=== PATIENT | female | born 1980 | race Caucasian/White ===

== ENCOUNTER 2019-05-11 19:45 | Emergency (ER) | payer OTHER ==
[~2019-05-11] VITALS: Ht 170.2 cm; Wt 72.6 kg
[~2019-05-11 19:45] MED LIST: ALBU18
[2019-05-11] MEDS ORDERED: BUPIVACAINE 0.5% P/F INJ 10 ML VIAL ONE (20:14)
[2019-05-12] MEDS ORDERED: LIDOCAINE 1% HCL (LOCAL ANESTH.) INJ 20ML MDV ID ONE (02:15)
[2019-05-12 04:11] VITALS: BP 124/76
[2019-05-12] MEDS ORDERED: cefTRIAXone W LIDOCAINE 1 GM IM IM ONE (04:15)
[2019-05-12] MEDS ORDERED: BACITRACIN INJ 50000 UNIT VIAL TOP ONE (04:15)
[2019-05-12] MEDS ORDERED: TETANUS-DIPTH-ACEL PERTUSSIS 0.5ML SYRG IM ONE (04:15)
[2019-05-12] MEDS ORDERED: cefTRIAXone SOD 1,000 MG VL ONE (05:03)
[2019-05-12] MEDS ORDERED: BACITRACIN TOP OINT 1 UD PKG TOP ONE (05:15)
== END 2019-05-12 05:29 | disposition home or self-care (01) ==
LOC: ER 19:48
DX: S61.213A Laceration without foreign body of left middle finger without damage to nail, initial encounter (principal); F17.210 Nicotine dependence, cigarettes, uncomplicated; J45.909 Unspecified asthma, uncomplicated; Z90.710 Acquired absence of both cervix and uterus; W26.8XXA Contact with other sharp object(s), not elsewhere classified, initial encounter; Y93.89 Activity, other specified; Y99.8 Other external cause status; Y92.89 Other specified places as the place of occurrence of the external cause
CPT/HCPCS: 12002; 73120; 90471; 90715; 96372; 99283; J0696; J2001; J3490

== ENCOUNTER 2020-02-22 11:02 | Emergency (ER) | payer OTHER ==
[~2020-02-22] VITALS: Ht 170.2 cm; Wt 72.6 kg
[2020-02-22 11:15] VITALS: BP 152/107
[2020-02-22] MEDS ORDERED: LACTULOSE 20Gm/30ML SOLN PO ONE (12:00)
== END 2020-02-22 12:09 | disposition home or self-care (01) ==
LOC: ER 11:02
DX: T24.212A Burn of second degree of left thigh, initial encounter (principal); K59.00 Constipation, unspecified; F17.210 Nicotine dependence, cigarettes, uncomplicated; J45.909 Unspecified asthma, uncomplicated; X08.8XXA Exposure to other specified smoke, fire and flames, initial encounter; Y93.89 Activity, other specified; Y92.89 Other specified places as the place of occurrence of the external cause; Y99.8 Other external cause status
CPT/HCPCS: 81002

== ENCOUNTER 2020-03-07 15:27 | Emergency (ER) | payer OTHER ==
[~2020-03-07] VITALS: Ht 170.2 cm; Wt 45.4 kg
[2020-03-07 15:38] VITALS: BP 133/82
== END 2020-03-07 17:03 | disposition home or self-care (01) ==
LOC: ER 15:27
DX: S63.642A Sprain of metacarpophalangeal joint of left thumb, initial encounter (principal); F17.210 Nicotine dependence, cigarettes, uncomplicated; X50.9XXA Other and unspecified overexertion or strenuous movements or postures, initial encounter; Y93.89 Activity, other specified; Y92.89 Other specified places as the place of occurrence of the external cause; Y99.8 Other external cause status
CPT/HCPCS: 29125; 73130

== ENCOUNTER 2021-08-06 00:56 | Emergency (ER) | payer OTHER ==
[~2021-08-06] VITALS: Ht 170.2 cm; Wt 72.6 kg
[2021-08-06 02:41] LABS: Basophils # (auto) 0.1 10 ^3/uL (0-0.2); Basophils % (auto) 3.3 % (0.0-2.0); Eosinophils # (auto) 0.1 10 ^3/uL (0-0.8); Eosinophils % (auto) 3.8 % (0.0-7.0); Hematocrit 42.5 % (36.0-46.0); Hemoglobin 14.3 g/dL (12.2-16.2); Lymphocytes # (auto) 1.4 10 ^3/uL (0.4-5.4); Lymphocytes % (auto) 43.8 % (10.0-50.0); Mean Corpuscular Hemoglobin 29.8 pg (28.0-32.0); Mean Corpuscular Hgb Conc. 33.6 g/dL (32.0-36.0); Mean Corpuscular Volume 88.7 fL (80.0-100.0); Monocytes # (auto) 0.4 10 ^3/uL (0-1.3); Monocytes % (auto) 12.1 % (0.0-12.0); Neutrophils # (auto) 1.2 10 ^3/uL (1.6-8.6); Nucleated Red Blood Cells % 0.2 %; Red Blood Cells 4.79 10^6/uL (4.0-5.20); Red Cell Distribution Width 13.7 % (11.8-14.3); White Blood Cell 3.2 10^3/uL (4.4-10.8)
[2021-08-06 02:58] LABS: Albumin 3.6 g/dL (3.4-5.0); Calcium 8.8 mg/dL (8.5-10.1); Potassium 4.3 mmol/L (3.5-5.1)
[2021-08-06 03:01] LABS: BUN/Creatinine Ratio 21.2
[2021-08-06 03:04] LABS: Bilirubin, Total 0.3 mg/dL (0.2-1.0); Total Protein 6.6 g/dL (6.4-8.2)
[2021-08-06 04:48] LABS: Urine Bacteria FEW /hpf (None Seen); Urine Blood TRACE /uL (Negative); Urine Mucus FEW (None Seen); Urine Specific Gravity 1.028 (1.001-1.035); Urine WBC 1 /hpf (0 - 5)
[2021-08-06] MEDS ORDERED: IBU600T PO (11:31)
[2021-08-06] MEDS ORDERED: NITR-87 PO (11:31)
[2021-08-06 11:40] VITALS: BP 129/92
[2021-08-06] MEDS ORDERED: ALBUAER3 IN (11:44)
== END 2021-08-06 11:50 | disposition home or self-care (01) ==
LOC: ER 01:00
DX: N20.0 Calculus of kidney (principal); N83.202 Unspecified ovarian cyst, left side; J45.909 Unspecified asthma, uncomplicated; F17.210 Nicotine dependence, cigarettes, uncomplicated; Z90.49 Acquired absence of other specified parts of digestive tract; Z79.899 Other long term (current) drug therapy
CPT/HCPCS: 36415; 74176; 76830; 76856; 80053; 81001; 83690; 85025

== ENCOUNTER 2023-02-21 19:08 | Emergency (ER) | payer OTHER ==
[~2023-02-21] VITALS: Ht 170.2 cm; Wt 75.0 kg
[~2023-02-21 19:08] MED LIST changes: +ALBUAER3 IN; +IBU600T PO; +NITR-87 PO
[2023-02-21] MEDS ORDERED: ONDANSETRON ODT 4 MG TAB PO ONE (19:30)
[2023-02-21] MEDS ORDERED: HYDROcodone-ACET 10/325MG TAB PO ONE (19:30)
[2023-02-21] MEDS ORDERED: LIDOCAINE 1% HCL (LOCAL ANESTH.) INJ 20ML MDV ONE (21:11)
[2023-02-21] MEDS ORDERED: LIDOCAINE 1% HCL (LOCAL ANESTH.) INJ 20ML MDV ID ONE (21:15)
[2023-02-21] MEDS ORDERED: NEOMYCIN-BACITRACIN-POLYM UNITDOSE PKG TOP OINT TOP ONE (22:00)
[2023-02-21 22:27] VITALS: BP 144/89; PULSE 76; RESP 18; TEMP 98; O2SAT 100
[2023-02-21] MEDS ORDERED: CEPH500C PO ×3 (22:40→23:56)
[2023-02-21] MEDS ORDERED: IBUP-1454 PO ×3 (22:40→23:56)
[2023-02-21] MEDS ORDERED: MAX35OO TOP ×2 (22:40)
[2023-02-21] MEDS ORDERED: HYDR-4798 PO ×4 (22:40→23:56)
[2023-02-22] MEDS ORDERED: HYDR-4798 PO (17:06)
== END 2023-02-21 22:50 | disposition home or self-care (01) ==
LOC: EDBD 19:08 → ER 19:08
DX: S61.012A Laceration without foreign body of left thumb without damage to nail, initial encounter (principal); S61.211A Laceration without foreign body of left index finger without damage to nail, initial encounter; S61.213A Laceration without foreign body of left middle finger without damage to nail, initial encounter; J45.909 Unspecified asthma, uncomplicated; F17.210 Nicotine dependence, cigarettes, uncomplicated; Z90.49 Acquired absence of other specified parts of digestive tract; Z79.1 Long term (current) use of non-steroidal anti-inflammatories (NSAID); Z79.899 Other long term (current) drug therapy; W26.8XXA Contact with other sharp object(s), not elsewhere classified, initial encounter; Y93.89 Activity, other specified; Y92.89 Other specified places as the place of occurrence of the external cause; Y99.8 Other external cause status
CPT/HCPCS: 12002; 73130; 99284; J2001; Q0162